=== PATIENT | female | born 1980 | race American Indian/Alaskan Native ===

== ENCOUNTER 2019-06-02 19:53 | Inpatient (IN) | payer MEDICAID ==
[2019-06-02] MEDS ORDERED: LACTATED RINGERS 1,000 ML ONE (21:27)
[2019-06-02] MEDS ORDERED: OXYTOCIN DRIP 30,000 MILLIUNITS/500 ML BAG IV ONE (21:28)
[2019-06-02] MEDS ORDERED: OXYTOCIN 20 UNIT/1000ML DRIP 40,000 MILLIUNITS/2,000 ML BAG IV ONE (21:28)
[2019-06-02] MEDS: LACTATED RINGERS 1,000 ML IV SCH (22:00)
[2019-06-02 22:01] LABS: Hematocrit 33.1 % (30.3-42.9); Hemoglobin 11.1 gm/dl (10.1-14.3); Mean Corpuscular HGB Conc 34 % (30-34); Mean Corpuscular Volume 95 fl (79-97); Platelet Count 174 K/mm3 (140-440); Red Cell Distribution Width 13.2 % (13.2-15.2)
--- NOTE | 2019-06-02 22:09 | History and Physical Report ---
History of Present Illness Date of examination: 06/02/19 Date of admission: 06/02/19 19:54 History of present illness: Menstrual History Regularity: regular Menses every: 30 days Duration: 7 LMP: 08/31/2018 LMP reliability: month known test type: urine test BC at conception: BCP Planned ? no EDC Calculations LMP: 06/07/2019 EDC Confirmation: 05/30/2019 Past History : 5 Term Births: 4 Premature Births: 0 Living Children: 4 Para: 4 Mult. Births: 0 Prev : 0 Aborta: 0 Elect. Ab: 0 Spont. Ab: 0 Ectopics: 0 # 1 Delivery date: 05/29/2009 Weeks Gestation: 41 Delivery type: Vacuum Hours of labor: 6 Anesthesia type: IV medication Delivery location: [facility] Infant Sex: male weight: 8.38 Name: Von # 2 Delivery date: 11/12/2010 Weeks Gestation: 40 Delivery type: Vaginal Hours of labor: 9 Anesthesia type: epidural Delivery location: [facility] Sex: male weight: 9.56 Name: James Comments: none # 3 Delivery date: 08/29/2012 Weeks Gestation: 40 labor: no Delivery type: Hours of labor: 7 Anesthesia type: epidural Delivery location: [facility] Infant Sex: Male weight: 8-0 # 4 Delivery date: 04/10/2014 Weeks Gestation: 40 1/7 Delivery type: Vaginal Anesthesia type: none Delivery location: [facility] Infant Sex: male weight: 7.88 Comments: none Past Medical History: Negative Past Medical History Past Surgical History: Breast Augmentation: (2016) Past Medical History Anesthesia Complications: negative Anemia: negative Autoimmune Disorder: negative Bleeding Disorder: negative Blood Transfusions: negative Breast Disease: negative Diabetes: negative Heart Disease: negative Hypertension: negative Hepatitis/Liver Disease: negative Kidney Disease/UTI: negative Neurologic/Epilepsy/Migraines: negative Phlebitis/Varicosities: negative Psychiatric: negative Pulmonary Disease/Asthma: negative Thyroid Disease: negative Hospitalizations: negative 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 Infection History Hx of STD: HPV HIV Risk Eval: low risk Hepatitis B Risk Eval: low risk Personal hx. of genital herpes: no Partner hx. of genital herpes: no Rash, Viral, or Febrile illness since last LMP? no Varicella/Chicken Pox Status: Previous Disease TB Risk: no Genetic History ADVANCED MATERNAL AGE Congenital Heart Defect: Mom: no Dad: no Rosita Disease: Mom: no Dad: no Thalassemia Mom: no Dad: no Neural Tube Defect Mom: no Dad: no Down's Syndrome Mom: no Dad: no Yoav-Sachs Mom: no Dad: no Sickle Cell Disease/Trait Mom: no Dad: no Hemophilia Mom: no Dad: no Muscular Dystrophy Mom: no Dad: no Cystic Fibrosis Mom: no Dad: no [place] Chorea Mom: no Dad: no Mental Retardation Mom: no Dad: no Fragile X Mom: no Dad: no Other Genetic/Chromosomal Disorder Mom: no Dad: no Child w/other defect Mom: no Dad: no Enviromental Exposures Xray Exposure: no Medication, drug, or alcohol use since LMP: no Chemical/Other Exposure: no Hx of Parvovirus (Fifth Disease): no Occupational Exposure to Children: none Current Allergies (reviewed today): * NKDA (Critical) Past History Past Medical History: other (SEE HPI) Past Surgical History: other (SEE HPI) 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 04/10/14 Unknown Rx Ferrous Gluconate [Fergon] 325 mg PO BID #60 tablet 04/11/14 Unknown Rx HYDROcodone/APAP 5-325 [[place] 1 each PO Q6HR PRN #20 tablet 04/11/14 Unknown Rx 5/325] Ibuprofen [Motrin] 800 mg PO Q8H PRN #20 tablet 04/11/14 Unknown Rx Vits96/Iron Fum/Folic 1 dose PO QDAY 04/11/14 04/11/14 04/09/14 08:00 History [ Tablet] one - Physical Exam Breasts: Positive: deferred Lungs: Positive: Normal air movement Abdomen: Positive: soft Uterus: Positive: enlarged Results Result Diagrams: 06/02/19 21:27 Abnormal lab results 06/02/19 Range/Units 21:27 RBC 3.50 L (3.65-5.03) M/mm3 All other labs normal. Assessment and Plan - Patient Problems (1) Gestational diabetes Current Visit: Yes Status: Acute Qualifiers: Gestational diabetes mellitus control: diet-controlled Trimester: third trimester Qualified Code(s): O24.410 - Gestational diabetes mellitus in , diet controlled Plan to address problem: Admit for induction (2) 40 weeks gestation of Current Visit: No Status: Acute
[2019-06-02] MEDS ORDERED: LIDOCAINE (2%) 20 MG/1 ML VIAL 20 ML MDV INFILTRATI ONE (22:19)
[2019-06-02] MEDS ORDERED: ePHEDrine SULFATE 50 MG/1 ML INJ IV PRN (22:19)
[2019-06-02] MEDS ORDERED: TERBUTALINE 1 MG/1 ML INJ IVP PRN (22:19)
[2019-06-02] MEDS ORDERED: BUTORPHANOL 2 MG/1 ML INJ IV PRN (22:19)
[2019-06-02] MEDS ORDERED: PROMETHAZINE 25 MG TAB PO PRN (22:19)
[2019-06-02] MEDS ORDERED: TERBUTALINE 1 MG/1 ML INJ SUB-Q PRN (22:19)
[2019-06-02] MEDS ORDERED: OXYTOCIN DRIP 30 UNITS/500 ML BAG IV SCH (23:00)
[2019-06-02] MEDS ORDERED: OXYTOCIN 20 UNIT/1000ML DRIP 20 UNITS/1,000 ML BAG IV SCH (23:00)
[2019-06-03] MEDS: LACTATED RINGERS 1,000 ML IV SCH (04:42)
[2019-06-03] MEDS ORDERED: OXYTOCIN DRIP 30 UNITS/500 ML BAG IV SCH (07:00)
--- NOTE | 2019-06-03 07:49 | Progress Note ---
Assessment and Plan Grand multiparity postdates for IOL Now 6cm dilated Has been on low dose pit overnight Will move forward with active IOL Pit to be increased by 4mu Q30min. Internals placed Re-eval as needed anticipate delivery Subjective - Subjective Date of service: 06/03/19 (resting) Principal diagnosis: IOL@ 41weeks Patient reports: movement normal Objective - Vital Signs Vital Signs: Vital Signs - 12hr 06/02/19 06/02/19 06/02/19 21:15 22:05 23:37 Temperature 97.9 F Pulse Rate 84 81 Respiratory 16 Rate Blood Pressure 126/83 124/83 Blood Pressure 123/83 [Right] 06/03/19 06/03/19 06/03/19 00:00 00:37 01:38 Temperature 97.8 F Pulse Rate 72 77 Respiratory Rate Blood Pressure 123/80 99/55 Blood Pressure [Right] 06/03/19 06/03/19 06/03/19 02:38 03:38 04:00 Temperature 98.3 F Pulse Rate 78 88 Respiratory Rate Blood Pressure 117/63 136/82 Blood Pressure [Right] 06/03/19 06/03/19 06/03/19 04:38 05:09 05:39 Temperature Pulse Rate 80 85 89 Respiratory Rate Blood Pressure 148/83 114/68 118/69 Blood Pressure [Right] 06/03/19 06/03/19 06/03/19 06:09 06:40 07:09 Temperature Pulse Rate 83 83 72 Respiratory Rate Blood Pressure 133/71 111/67 131/72 Blood Pressure [Right] 06/03/19 07:39 Temperature Pulse Rate 79 Respiratory Rate Blood Pressure 135/72 Blood Pressure [Right] - Exam Breasts: deferred Cardiovascular: Regular rate Lungs: Normal air movement Abdomen: Present: normal appearance, soft. Absent: distention, tenderness Uterus: Present: normal FHR: auscultation normal, category 1 Uterine Contraction Monitor Mode: Internal Cervical Dilatation: 6 (Internals placed) Cervical Effacement Percentage: 60 station: -2 Uterine Contraction Pattern: Irregular Uterine Tone Measurement Phase: Resting Uterine Contraction Intensity: Moderate Extremities: normal Deep Tendon Reflex Grade: Normal +2 - Labs Labs: Abnormal Labs 06/02/19 21:27 RBC 3.50 L Laboratory Results - last 24 hr 06/02/19 06/02/19 06/02/19 21:27 21:27 21:27 WBC 5.8 RBC 3.50 L Hgb 11.1 Hct 33.1 MCV 95 MCH 32 MCHC 34 RDW 13.2 Plt Count 174 POC Glucose Syphilis IgG Antibody Non-reactive Blood Type O POSITIVE Antibody Screen Negative 06/03/19 06/03/19 00:23 04:44 WBC RBC Hgb Hct MCV MCH MCHC RDW Plt Count POC Glucose 78 81 Syphilis IgG Antibody Blood Type Antibody Screen
[2019-06-03] MEDS ORDERED: METHYLERGONOVINE MALEATE 0.2 MG/ML VIAL IM ONE ×2 (10:45→13:10)
[2019-06-03] MEDS ORDERED: BISACODYL 10 MG RECT SUPP PR PRN (12:11)
[2019-06-03] MEDS ORDERED: WITCH HAZEL/ GLYCERIN PAD TP PRN (12:11)
[2019-06-03] MEDS ORDERED: MAGNESIUM HYDROXIDE (MOM) ORAL LIQD UDC PO PRN (12:11)
[2019-06-03] MEDS ORDERED: LANOLIN/ZINC/DIMETHICONE (LANSINOH) 7 GM TP PRN (12:11)
[2019-06-03] MEDS ORDERED: diphenhydrAMINE 25 MG CAP PO PRN (12:11)
[2019-06-03] MEDS ORDERED: ACETAMINOPHEN 325 MG TAB PO PRN (12:11)
[2019-06-03] MEDS ORDERED: ONDANSETRON 4 MG/2 ML INJ IV PRN (12:11)
[2019-06-03] MEDS ORDERED: HYDROcodone/ACETAMINOPHEN 5-325 MG TAB PO PRN (12:11)
--- NOTE | 2019-06-03 12:20 | Procedure Note ---
OB Delivery Note - Delivery Date of Delivery: 06/03/19 Production Control Analyst: CARLITOS SANCHEZ Estimated blood loss: 500cc - Vaginal Delivery presentation: vertex Delivery position: OA Intrapartum events: other(please specify) (GDM diet controlled) Delivery induction: oxytocin Delivery augmentation: rupture of membranes, pitocin Delivery monitor: internal FHT, internal uterine Delivery placenta: spontaneous Delivery cord: 3 umbilical vessels Episiotomy: none Delivery laceration: 1st degree Anesthesia: intravenous Delivery comments: live born male over intact perineum Baby skin to skin Mom's abdomen Delayed cord clamping Cord blood obtained Placenta and membrane delivered complete and intact, 3 vessel cord. Pit IVFs. 1st degree lac noted on perineum No repair indicated. 8/9, EBL 500, methergine IM given, Wgt 9-3 Mom and baby remain LDR stable. FF @ umb Lochia small/mod with small clots Will continue to monitor. - A at 1 minute: 8 at 5 minutes: 9 Infant Gender: Male (wgt 9-3)
[2019-06-03] MEDS: METHYLERGONOVINE 0.2 MG TABLET PO SCH ×2 (14:48→22:17)
[2019-06-03] MEDS: IBUPROFEN 600 MG TAB PO SCH ×2 (14:48→20:21)
[2019-06-04 01:06] LABS: Hematocrit 31.1 % (30.3-42.9); Hemoglobin 10.5 gm/dl (10.1-14.3)
[2019-06-04] MEDS: METHYLERGONOVINE 0.2 MG TABLET PO SCH (05:43)
[2019-06-04] MEDS: IBUPROFEN 600 MG TAB PO SCH ×2 (05:43→12:05)
--- NOTE | 2019-06-04 09:25 | Discharge Summary ---
Providers - Providers Date of Admission: 06/02/19 19:54 Date of discharge: 06/04/19 (pt desires d/c today if NB can be d/c) Attending physician: HALINA YUN Primary care physician: HALINA YUN Hospitalization Reason for admission: induction of labor (GDM) Delivery: Episiotomy: none Laceration: none Incision: normal Other procedures: none complications: none Discharge diagnosis: IUP at term delivered baby: male Hospital course: uncomplicated vaginal delivery Pt awake caring for NB Breast feeding VSS FF below umb Lochia small perineum intact. H&H 06/05 No s/sx of anemia Doing well s/p vag delivery P: d/c today with instructions RTO 4 weeks PP care Will nas 2hr GTT @ 6weeks PP Circ in 1 week Condition at discharge: Good Disposition: DC-01 TO HOME OR SELFCARE - Discharge Diagnoses (1) Normal spontaneous vaginal delivery Status: Acute Comment: Congratulations! Please call [phone] to schedule your visit in 4 weeks. Schedule your son's circumcision in 1 week. Bring the EMLA cream with you to his visit. Do NOT use at home. Take Motrin as prescribed for cramping/pain. Call with any concerns. Plan - Discharge Medications Prescriptions: Lidocain2.5%/Prilocai2.5% [Emla] 5 gm TP PRN #1 tube Ibuprofen [Motrin 800 MG tab] 800 mg PO TID PRN #30 tablet PRN Reason: Pain - Provider Discharge Summary Activity: routine, no sex for 6 weeks, no heavy lifting 4 weeks Diet: routine Instructions: routine Additional instructions: [] Smoking cessation referral if applicable(refer to patient education folder for contact #) [] Refer to [facility] Booklet Call your doctor immediately for: * Fever > 100.5 * Heavy vaginal bleeding ( >1 pad per hour) * Severe persistent headache * Shortness of breath * Reddened, hot, painful area to leg or breast * Drainage or odor from incision. * Keep incision clean and dry at all times and follow doctor's instructions regarding bathing/showering - Follow up plan Follow up: HALINA YUN MD [Primary Care Provider] - 7 Days (Congratulations! Please call [phone] to schedule your visit in 4 weeks. Schedule your son's circumcision in 1 week. Bring the EMLA cream with you to his visit. Do NOT use at home. Take Motrin as prescribed for cramping/pain. Call with any concerns.)
[2019-06-04 17:03] VITALS: BP 125/74
== END 2019-06-04 15:45 | disposition home or self-care (01) | DRG 775 ==
LOC: TRG 19:53 → LD 19:54 → OB 06-03 14:01
PROVIDERS: ADMIT Obstetrics & Gynecology; ATTEND Obstetrics & Gynecology
PROC: 10H07YZ Insertion of Other Device into Products of Conception, Via Natural or Artificial Opening (ICD-10-PCS; 2019-06-02)
PROC: 3E033VJ Introduction of Other Hormone into Peripheral Vein, Percutaneous Approach (ICD-10-PCS; 2019-06-02)
PROC: 10E0XZZ Delivery of Products of Conception, External Approach (ICD-10-PCS; principal; 2019-06-03)
PROC: 0HQ9XZZ Repair Perineum Skin, External Approach (ICD-10-PCS; 2019-06-03)
DX: O24.420 Gestational diabetes mellitus in childbirth, diet controlled (principal); O48.0 Post-term pregnancy; O70.0 First degree perineal laceration during delivery; Z3A.40 40 weeks gestation of pregnancy; Z37.0 Single live birth; Z80.59 Family history of malignant neoplasm of other urinary tract organ; Z83.3 Family history of diabetes mellitus
CPT/HCPCS: 36415; 82962; 85014; 85018; 85027; 86592; 86762; 86850; 86900; 86901; 88307; G0378; J0595; J2210; J2590; J7120